=== PATIENT | female | born 1975 | race Hispanic/Latino ===

== ENCOUNTER 2021-07-04 18:58 | Emergency (ER) | payer BC, OTHER ==
[~2021-07-04] VITALS: Ht 152.4 cm; Wt 106.6 kg
[2021-07-04] MEDS ORDERED: BACTRIM DS TAB1 EACH PO (19:53)
[2021-07-04] MEDS ORDERED: CHLORHEXIDINE1 EACH TOP (19:53)
[2021-07-04] MEDS ORDERED: IBUPROFEN600 MG PO (20:10)
[2021-07-04] MEDS ORDERED: FLUCONAZOLE100 MG PO (20:10)
[2021-07-04 20:18] VITALS: BP 142/100
== END 2021-07-04 20:39 | disposition home or self-care (01) ==
LOC: FSED 19:04
DX: L08.9 Local infection of the skin and subcutaneous tissue, unspecified (principal); I10 Essential (primary) hypertension; E78.00 Pure hypercholesterolemia, unspecified; M79.7 Fibromyalgia
CPT/HCPCS: 36415; 82948; 99283

== ENCOUNTER → 2021-09-11 | Outpatient (RCR) | payer OTHER ==
[~2021-09-11] MED LIST: BACTRIM DS TAB1 EACH PO; CHLORHEXIDINE1 EACH TOP; FLUCONAZOLE100 MG PO; IBUPROFEN600 MG PO
== END ==
LOC: OT 09:58
PROVIDERS: ATTEND Orthopaedic Surgery
DX: M77.01 Medial epicondylitis, right elbow (principal)

== ENCOUNTER 2021-10-06 09:00 | Outpatient (RCR) | payer OTHER | END 2021-10-12 | LOC: OT 09:00 | PROVIDERS: ATTEND Orthopaedic Surgery | DX: M77.01 Medial epicondylitis, right elbow (principal) ==

== ENCOUNTER 2021-10-06 09:23 | Outpatient (RCR) | payer OTHER | END 2021-10-12 | LOC: PT 09:23 | PROVIDERS: ATTEND Orthopaedic Surgery Sports Medicine | DX: M22.41 Chondromalacia patellae, right knee (principal) ==